=== PATIENT | male | born 1970 | race Caucasian/White ===

== ENCOUNTER 2016-07-23 08:25 | Emergency (ER) | payer SELFPAY ==
[2016-07-23] MEDS ORDERED: NS 1,000 ML IV ONE (08:41)
[2016-07-23 08:48] LABS: COLOR PALE YELLOW; LEUKOCYTE ESTERASE,URINE NEGATIVE (NEGATIVE); NITRITE,URINE NEGATIVE (NEGATIVE)
[2016-07-23 09:18] LABS: % IMMATURE GRANULYOCYTES 0.6 % (0.0-1.1); ABSOLUTE IMMATURE GRANULOCYTES 0.03 10^3/uL (0.00-0.10); ADD DIFF? NO; ADD MORPH? NO; ADD SCAN? NO; ATYPICAL LYMPHOCYTE FLAG 10 (0-99); FRAGMENT RBC FLAG 0 (0-99); HEMATOCRIT 45.8 % (40.0-51.0); HEMOGLOBIN 15.3 g/dL (13.7-17.5); LEFT SHIFT FLG 0 (0-99); LIPEMIA HEMOLYSIS FLAG 80 (0-99); MEAN CELL HEMOGLOBIN 29.3 pg (27.9-34.1); MEAN CELL HEMOGLOBIN CONCENTR. 33.4 g/dL (32.4-36.7); MEAN CELL VOLUME 87.7 fL (81.5-99.8); MEAN PLATELET VOLUME 8.9 fL (8.7-11.7); PLATELET CLUMPS FLAG 10 (0-99); PLATELET COUNT 270 10^3/uL (150-400); RED BLOOD CELL COUNT 5.22 10^6/uL (4.40-6.38); RED CELL DISTRIBUTION WIDTH 13.1 % (11.5-15.2)
--- NOTE | 2016-07-23 09:30 | EDPHY ---
H & P Stated Complaint: LUQ/L flank pain "this week"; worse w/ambulation Time Seen by Provider: 07/23/16 08:59 HPI/ROS: CHIEF COMPLAINT: Right flank pain HISTORY OF PRESENT ILLNESS: The patient is a 46 year old male presenting right sided flank pain that started 1 week ago. The pain radiates into the right groin and testicles after walking. Last night the pain worsened and became constant. He is unable to get comfortable when lying on his sides. His last bowel movement was this morning, he denies constipation issues. No fever, chills , chest pain, shortness of breath, palpitations, vomiting, diarrhea, urinary complaints, headache, lightheadedness. The patient additionally notes upper abdominal pain that has been present for 1 month. The pain has improved, but he now feels more swollen in the right upper quadrant than usual. He has no history of hernia. He uses an antacid for reflux. REVIEW OF SYSTEMS: Aside from elements discussed in the HPI, a comprehensive 10-point review of systems was reviewed and is negative. PAST MEDICAL HISTORY: Denies. SOCIAL HISTORY: Moved here 1.5 years ago from [place]. Rare alcohol use. VITAL SIGNS: Reviewed by me GENERAL: Well-developed, well-nourished, resting comfortably in no respiratory distress. HEENT: Atraumatic. Eyes: No icterus, no injection. Mouth: moist mucous membranes. No erythema or lesions. Neck: supple with no adenopathy. LUNGS: Clear to auscultation bilaterally, no wheezes, rhonchi or rales. CARDIAC: Regular rate and rhythm, no rubs, murmurs or gallops. ABDOMEN: Fullness palpable in the right upper quadrant, presumably hepatomegaly. Minimal tenderness to palpation along the inguinal region. No left upper quadrant midline or left lower quadrant tenderness. No guarding or rebound. No palpable hernia. GENITOURINARY: Normal testicular exam. No hernia identified, no testicular tenderness, no penile discharge noted. BACK: No CVA tenderness. EXTREMITIES: No trauma. No edema. Range of motion is normal throughout. NEURO: Alert and oriented, grossly nonfocal. SKIN: Warm and dry, no rash. PSYCHIATRIC: Normal mentation, no agitation. Portions of this note were transcribed by a adjunct faculty for medical terminology. I personally performed a history, physical exam, medical decision making, and confirmed accuracy of information the transcribed note. - Personal History Current Tetanus Diphtheria and Acellular Pertussis (TDAP): Unsure - Social History Smoking Status: Never smoked Constitutional: Initial Vital Signs Temperature (C) 36.4 C 07/23/16 08:26 Heart Rate 86 07/23/16 08:26 Respiratory Rate 18 07/23/16 08:26 Blood Pressure 139/92 H 07/23/16 08:26 O2 Sat (%) 97 07/23/16 08:26 O2 Delivery Mode Room Air Allergies/Adverse Reactions: No Known Allergies Allergy (Unverified 07/23/16 08:30) Home Medications: Medication Instructions Recorded NK [No Known Home Meds] 07/23/16 Medical Decision Making - Diagnostics Imaging: Results: US of the abdomen was obtained. I viewed the images independently on the PACS system. I discussed the results of the study with the radiologist. Impression : 1. There is a 13.1 x 9.9 cm heterogeneous predominantly solid mass abutting the pancreatic head, inferior to the right hepatic lobe and anterior to the abdominal aorta, extending from the level of the xiphoid process inferiorly to the level of the umbilicus. 2. There is a 1.5 cm midpole right renal cortical cyst. 3. Normal appearance of the gallbladder. Please see the full radiology report. ED Course/Re-evaluation: IV was established. Patient received 1L normal saline. Plan for blood work and abdominal ultrasound. Patient's blood work and urinalysis are all normal, including LFTs as well as lipase. 12:00 p.m.: US results are abnormal and demonstrated a large mass situated between the liver and the pancreas. This is not clearly contiguous with the liver or with the pancreas. Radiology recommends CT scanning with IV and oral contrast to further delineate. I held a long discussion with the patient and his . I discussed the ultrasound findings. We discussed further evaluation in the emergency department includes CT scan with IV and oral contrast. Patient initially seemed in agreement, but after several minutes proceeded to tell me that he would like to leave and obtain remainder of his workup in [place]. He is concerned regarding the cost. He has no health insurance here but states that he has insurance in [place]. I asked case management director to see the patient but he is quite adamant that he would prefer to leave and to obtain remainder of his workup in [place]. He understands that this mass may represent tumor. He understands that this may represent a cancer. He understands that the delay in diagnosis may be quite harmful to his health. He understands that this mass is of significant size and needs further evaluation as soon as possible. He reports he will go to [place] this weekend and will follow up there for further evaluation. Copy of the patient's chart and radiology report provided to the patient to take with him. Differential Diagnosis: Differential diagnoses for the patient's symptom complex was considered including but not limited to hepatomegaly, malignancy, infection, ascites, kidney stone. - Data Points Laboratory Results: Laboratory Results 07/23/16 08:53 07/23/16 08:53 07/23/16 07/23/16 07/23/16 08:53 08:53 08:37 WBC 5.35 10^3/uL 10^3/uL (3.80-9.50) RBC 5.22 10^6/uL 10^6/uL (4.40-6.38) Hgb 15.3 g/dL g/dL (13.7-17.5) Hct 45.8 % % (40.0-51.0) MCV 87.7 fL fL (81.5-99.8) MCH 29.3 pg pg (27.9-34.1) MCHC 33.4 g/dL g/dL (32.4-36.7) RDW 13.1 % % (11.5-15.2) Plt Count 270 10^3/uL 10^3/uL (150-400) MPV 8.9 fL fL (8.7-11.7) Neut % (Auto) 68.7 % % (39.3-74.2) Lymph % (Auto) 18.7 % % (15.0-45.0) [place] % (Auto) 9.7 % % (4.5-13.0) Eos % (Auto) 1.9 % % (0.6-7.6) Baso % (Auto) 0.4 % % (0.3-1.7) Nucleat RBC Rel Count 0.0 % % (0.0-0.2) Absolute Neuts (auto) 3.68 10^3/uL 10^3/uL (1.70-6.50) Absolute Lymphs (auto) 1.00 10^3/uL 10^3/uL (1.00-3.00) Absolute Monos (auto) 0.52 10^3/uL 10^3/uL (0.30-0.80) Absolute Eos (auto) 0.10 10^3/uL 10^3/uL (0.03-0.40) Absolute Basos (auto) 0.02 10^3/uL 10^3/uL (0.02-0.10) Absolute Nucleated RBC 0.00 10^3/uL 10^3/uL (0-0.01) Immature Gran % 0.6 % % (0.0-1.1) Immature Gran # 0.03 10^3/uL 10^3/uL (0.00-0.10) Sodium 141 mEq/L mEq/L (134-144) Potassium 4.3 mEq/L mEq/L (3.5-5.2) Chloride 101 mEq/L mEq/L (97-110) Carbon Dioxide 26 mEq/l mEq/l (22-31) Anion Gap 14 mEq/L mEq/L (8-16) BUN 13 mg/dL mg/dL (7-23) Creatinine 0.7 mg/dL mg/dL (0.7-1.3) Estimated GFR > 60 Glucose 86 mg/dL mg/dL (70-100) Calcium 9.8 mg/dL mg/dL (8.5-10.4) Total Bilirubin 1.0 mg/dL mg/dL (0.1-1.4) Conjugated Bilirubin 0.4 mg/dL mg/dL (0.0-0.5) Unconjugated Bilirubin 0.6 mg/dL mg/dL (0.0-1.1) AST 27 IU/L IU/L (17-59) ALT 49 IU/L IU/L (21-72) Alkaline Phosphatase 103 IU/L IU/L (38-126) Total Protein 8.1 g/dL g/dL (6.3-8.2) Albumin 4.7 g/dL g/dL (3.5-5.0) Lipase 105.0 IU/L IU/L (23-300) Urine Color PALE YELLOW Urine Appearance CLEAR Urine pH 7.0 (5.0-7.5) Ur Specific [place] 1.010 (1.002-1.030) Urine Protein NEGATIVE (NEGATIVE) Urine Ketones NEGATIVE (NEGATIVE) Urine Blood NEGATIVE (NEGATIVE) Urine Nitrate NEGATIVE (NEGATIVE) Urine Bilirubin NEGATIVE (NEGATIVE) Urine Urobilinogen NEGATIVE EU EU (0.2-1.0) Ur Leukocyte Esterase NEGATIVE (NEGATIVE) Urine RBC 1-3 /hpf /hpf (0-3) Urine WBC 1-3 /hpf /hpf (0-3) Ur Epithelial Cells TRACE /lpf /lpf (NONE-1+) Urine Glucose NEGATIVE (NEGATIVE) Medications Given: Discontinued Medications Sodium Chloride (Ns) 1,000 mls @ 0 mls/hr IV ONCE ONE PRN Reason: Wide Open Stop: 07/23/16 08:42 Last Admin: 07/23/16 09:18 Dose: 1,000 mls Departure - Departure Disposition: Home, Routine, Self-Care Clinical Impression: Abdominal mass Qualifiers: Abdominal location: right upper quadrant Qualified Code(s): R19.01 - Right upper quadrant abdominal swelling, mass and lump Condition: Good Instructions: Abdominal Pain (ED) Additional Instructions: Please followup as soon as possible for further delineation of this mass. You have been referred to a primary care physician. If you decide to seek further treatment, please call this physician to arrange a followup appointment. You must obtain a CT scan as soon as possible. If this mass represents a tumor or a malignancy, a delay in obtaining a diagnosis could be detrimental. Referrals: Teo Feliz MD [Medical Doctor] - As per Instructions Report Scribed for: Caitlyn Moreno Report Scribed by: Sofiya Santana Date of Report: 07/23/16 Time of Report: 09:30
[2016-07-23 09:47] LABS: ANION GAP 14 mEq/L (8-16); CALCIUM 9.8 mg/dL (8.5-10.4); CARBON DIOXIDE 26 mEq/l (22-31); CHLORIDE 101 mEq/L (97-110); CREATININE 0.7 mg/dL (0.7-1.3); GLOMERULAR FILTRATION RATE > 60; GLUCOSE 86 mg/dL (70-100); POTASSIUM 4.3 mEq/L (3.5-5.2); SODIUM 141 mEq/L (134-144)
[2016-07-23 10:02] LABS: ALANINE AMINOTRANSFERASE 49 IU/L (21-72); ALBUMIN 4.7 g/dL (3.5-5.0); ALKALINE PHOSPHATASE 103 IU/L (38-126); ASPARTATE AMINOTRANSFERASE 27 IU/L (17-59); BILIRUBIN-CONJUGATED 0.4 mg/dL (0.0-0.5); BILIRUBIN-UNCONJUGATED 0.6 mg/dL (0.0-1.1); TOTAL PROTEIN 8.1 g/dL (6.3-8.2)
[2016-07-23] MEDS ORDERED: GASTROVIEW 30 ML UNIT PO ONE (12:12)
[2016-07-23 12:53] VITALS: BP 134/93; PULSE 107; RESP 16; TEMP 98.2; O2SAT 95
[2016-07-23] MEDS ORDERED: IOPAMIDOL (ISOVUE-300) 100 ML BTL IV ONE (12:58)
== END 2016-07-23 12:56 | disposition home or self-care (01) ==
DX: R19.01 Right upper quadrant abdominal swelling, mass and lump (principal)
CPT/HCPCS: Q9967